=== PATIENT | male | born 1975 | race American Indian/Alaskan Native ===

== ENCOUNTER 2020-07-12 09:42 | Emergency (ER) | payer OTHER ==
[2020-07-12] MEDS ORDERED: LORazepam 2 MG/ML VIAL ONE (10:08)
[2020-07-12 10:20] LABS: Absolute Lymphocytes (CBC) 2.2 K/uL (0.7-4.9); Basophils % 0.8 % (0-1.3); Hematocrit 40.3 % (39.6-49.0); Lymphocytes % 31.7 % (15.3-44.8); MPV 9.4 fL (7.6-11.3); RBC Red Blood Cell Count 4.72 M/uL (4.33-5.43)
[2020-07-12 10:27] LABS: Protime INR 0.92
[2020-07-12 10:40] LABS: ALT/SGPT 22 U/L (12-78); AST/SGOT 22 U/L (15-37); Albumin 3.8 g/dL (3.4-5.0); Alkaline Phosphatase 89 U/L (45-117); BUN Blood Urea Nitrogen 19 mg/dL (7-18); Bicarbonate 30 mmol/L (21-32); Bilirubin Direct < 0.1 mg/dL (0-0.2); Bilirubin Total 0.3 mg/dL (0.2-1.0); Glucose Level 147 mg/dL (74-106); Magnesium 2.1 mg/dL (1.8-2.4); NT PRO-BNP 40 pg/mL (<125); Potassium 4.3 mmol/L (3.5-5.1); Protein, Total 7.7 g/dL (6.4-8.2); Sodium Level 143 mmol/L (136-145); Troponin (Emerg Dept Use Only) < 0.02 ng/mL (0.0-0.045)
--- NOTE | 2020-07-12 10:52 | RAD REPORT ---
EXAM DESCRIPTION: RAD - Chest Single View - 07/12/2020 10:33 am CLINICAL HISTORY: CHEST PAIN COMPARISON: None TECHNIQUE: AP portable chest image was obtained 07/12/2020 10:33 am . FINDINGS: Lungs are clear. Heart and vasculature are normal. No measurable pleural effusion and no p neumothorax. No acute bony abnormality seen. No acute aortic findings suspected. IMPRESSION: No acute cardiopulmonary process.
--- NOTE | 2020-07-12 13:53 | ER ---
Nurse's Notes [facility] Name: Danial Quiroz Age: 45 yrs Sex: Male : 1975 Arrival Date: 07/12/2020 Time: 09:43 Bed 17 Private MD: Diagnosis: Chest pain, unspecified Presentation: 07/12 09:43 Chief complaint: Patient states: midsternal chest pain while sitting at his computer sv desk about 45 mins ago. ASA 324 mg PO given by EMS. Vitals WNL. Coronavirus screen: Client denies travel out of the [place] in the last 14 days. At this time, the client does not indicate any symptoms associated with coronavirus-19. Ebola Screen: No symptoms or risks identified at this time. Risk Assessment: Do you want to hurt yourself or someone else? Patient reports no desire to harm self or others. Onset of symptoms was July 12, 2020. 09:43 Method Of Arrival: EMS: [employer] [facility] 09:43 Acuity: DOMONIQUE 3 sv 10:41 Initial Sepsis Screen: Does the patient meet any 2 criteria? No. Patient's initial sv sepsis screen is negative. Does the patient have a suspected source of infection? No. Patient's initial sepsis screen is negative. Triage Assessment: 09:46 General: Appears in no apparent distress. comfortable, well groomed, well developed, sv Behavior is cooperative, appropriate for age, anxious. Pain: Complains of pain in chest. Neuro: Level of Consciousness is awake, alert, obeys commands, Oriented to person, place, time, situation, Moves all extremities. Full function Gait is steady. Cardiovascular: Patient's skin is warm and dry. Respiratory: Airway is patent Respiratory effort is even, unlabored, Respiratory pattern is regular, symmetrical. Derm: Skin is intact, Skin is pink, warm \\T\\ dry. Historical: - Allergies: 10:41 No Known Allergies; sv - PMHx: 09:45 Anxiety; High Cholesterol; sv - Immunization history:: Adult Immunizations up to date. - Social history:: Smoking status: Patient denies any tobacco usage or history of. Screenin:46 Abuse screen: Denies threats or abuse. Denies injuries from another. Nutritional sv screening: No deficits noted. Tuberculosis screening: No symptoms or risk factors identified. Fall Risk None identified. Assessment: 10:44 Reassessment: Patient appears in no apparent distress at this time. No changes from sv previously documented assessment. Patient and/or family updated on plan of care and expected duration. Pain level reassessed. Patient is alert, oriented x 3, equal unlabored respirations, skin warm/dry/pink. 11:24 Reassessment: Patient appears in no apparent distress at this time. Patient and/or sv family updated on plan of care and expected duration. Pain level reassessed. Patient is alert, oriented x 3, equal unlabored respirations, skin warm/dry/pink. Pt reports "my head is pounding." Asked pt if he would like me to ask for any medication for him, he stated "No I'll just deal with it.". 12:43 General: Appears in no apparent distress. comfortable, Behavior is calm, cooperative, zb appropriate for age. Pain: Complains of pain in chest Pain does not radiate. Quality of pain is described as aching, soreness. Neuro: Level of Consciousness is awake, alert, obeys commands, Oriented to person, place, time, situation. Cardiovascular: Heart tones S1 S2 present Capillary refill < 3 seconds in bilateral fingers Patient's skin is warm and dry. Respiratory: Airway is patent Respiratory effort is even, unlabored, Respiratory pattern is regular, symmetrical, Breath sounds are clear bilaterally. GI: Abdomen is round non-distended, Bowel sounds present X 4 quads. Abd is soft and non tender Patient currently denies nausea, vomiting. : No signs and/or symptoms were reported regarding the genitourinary system. EENT: No signs and/or symptoms were reported regarding the EENT system. Derm: Skin is intact, Skin is dry, Skin is normal, Skin temperature is warm. Musculoskeletal: Circulation, motion, and sensation intact. Capillary refill < 3 seconds, in bilateral fingers. Range of motion: intact in all extremities. 13:43 Reassessment: Patient appears in no apparent distress at this time. Patient and/or zb family updated on plan of care and expected duration. Pain level reassessed. Patient is alert, oriented x 3, equal unlabored respirations, skin warm/dry/pink. EKG preformed. discussed care with patient. 14:24 Reassessment: Patient appears in no apparent distress at this time. Patient and/or zb family updated on plan of care and expected duration. Pain level reassessed. Patient is alert, oriented x 3, equal unlabored respirations, skin warm/dry/pink. d/c instructions given. gait steady patient ready to go. Vital Signs: 09:48 BP 132 / 77; Pulse 78 MON; Resp 16; Temp 98; Pulse Ox 98% on R/A; sv 10:37 BP 130 / 73; Pulse 68; Resp 18; Temp 98.2; Pulse Ox 100% on R/A; mh5 11:17 BP 130 / 82; Pulse 73 MON; Resp 16; Pulse Ox 100% on R/A; sv 12:14 BP 110 / 69; Pulse 67; Resp 17; Temp 98.4(O); Pulse Ox 100% ; mh5 13:21 BP 125 / 75; Pulse 60; Resp 17; Pulse Ox 100% on R/A; mh5 14:26 BP 122 / 70; Pulse 57; Resp 16; Pulse Ox 100% on R/A; zb 09:48 Sinus Rhythm sv 11:17 Sinus Rhythm sv ED Course: 09:43 Patient arrived in ED. sv 09:43 Beverly Brown RN is Primary Nurse. sv 09:45 Triage completed. sv 09:45 Deanna Espino FNP-C is PHCP. kb 09:45 Sanchez Dwyer MD is Attending Physician. kb 09:45 Arm band placed on. sv 09:45 Maintain EMS IV. Dressing intact. Site clean \\T\\ dry. Gauge \\T\\ site: 18G L AC. sv 09:45 Patient maintains SpO2 saturation greater than 95% on room air. sv 09:46 Patient has correct armband on for positive identification. Placed in gown. Bed in low sv position. Call light in reach. Side rails up X2. court monitor on. Pulse ox on. NIBP on. Door closed. Head of bed elevated. 10:33 XRAY Chest (1 view) In Process Unspecified. EDMS 10:44 Awaiting radiology results. sv 11:52 Nurse Practitioner and/or Physician Ring Maker to see patient. sv 12:00 Report given to Urszula ARIAS. sv 14:26 No provider procedures requiring assistance completed. IV discontinued, intact, zb bleeding controlled, No redness/swelling at site. Pressure dressing applied. Administered Medications: 09:55 Drug: Ativan 0.5 mg Route: IVP; Site: left antecubital; bp 10:26 Follow up: Response: No adverse reaction sv Outcome: 13:53 Discharge ordered by MD. webb 14:26 Discharged to home ambulatory. zb 14:26 Condition: stable 14:26 Discharge instructions given to patient, Instructed on discharge instructions, follow up and referral plans. Demonstrated understanding of instructions, follow-up care. 14:28 Patient left the ED. zb Signatures: Dispatcher [employer] EDMS Deanna Espino, ALEXANDRA-C ALEXANDRA-Beverly Cole, RN RN Keysha Hassan [facility] Lalo Chatterjee RN RN bp Brown, Zipporah, RN RN zb Corrections: (The following items were deleted from the chart) 10:41 09:48 Pulse 78bpm; Resp 16bpm; Pulse Ox 98% RA; sv sv 11:17 09:48 BP 132 / 77; Pulse 78bpm; Resp 16bpm; Pulse Ox 98% RA; Temp 98F; sv sv
--- NOTE | 2020-07-12 13:53 | EDPHYS ---
Physician Documentation [facility] Name: Danial Quiroz Age: 45 yrs Sex: Male : 1975 Arrival Date: 07/12/2020 Time: 09:43 Bed 17 Private MD: ED Physician Sanchez Dwyer HPI: 07/12 09:55 This 45 yrs old Other Male presents to ER via EMS with complaints of Chest Pain. kb 09:55 The patient or guardian reports chest pain that is located primarily in the substernal kb area. Onset: just prior to arrival. The pain does not radiate. Associated signs and symptoms: Pertinent positives: lightheadedness. The chest pain is described as "sinking feeling, like I was hit with a baseball". Duration: The patient or guardian reports a single episode, that is now resolved. Modifying factors: The symptoms are alleviated by nothing. the symptoms are aggravated by nothing. Severity of pain: At its worst the pain was moderate in the emergency department the pain has resolved and did so just prior to arrival. EMS care prior to arrival includes: aspirin, IV fluids, saline lock, supplemental oxygen. The patient has not experienced similar symptoms in the past. The patient has not recently seen a physician. Pt reports he was sitting at his desk at work and had a sudden sinking feeling in his chest, like he was hit with a baseball that made his chest cave in. States he went down to one knee and said "ouch." States he had some lightheadedness at that time. Now all symptoms have resolved, but he has anxiety. States he has a history of anxiety, GERD and hyperlipidemia. States he has had chest tightness before, but this is different. . Historical: - Allergies: 10:41 No Known Allergies; sv - PMHx: 09:45 Anxiety; High Cholesterol; sv - Immunization history:: Adult Immunizations up to date. - Social history:: Smoking status: Patient denies any tobacco usage or history of. ROS: 09:52 Constitutional: Negative for fever, chills, and weight loss, Respiratory: Negative for kb shortness of breath, cough, wheezing, and pleuritic chest pain, Abdomen/GI: Negative for abdominal pain, nausea, vomiting, diarrhea, and constipation, MS/Extremity: Negative for injury and deformity, Skin: Negative for injury, rash, and discoloration, Neuro: Negative for headache, weakness, numbness, tingling, and seizure. 09:52 Cardiovascular: Positive for chest pain, Negative for edema, orthopnea, palpitations, paroxysmal nocturnal dyspnea. 09:52 Psych: Positive for anxiety. Exam: 09:50 Constitutional: This is a well developed, well nourished patient who is awake, alert, kb and in no acute distress. Head/Face: Normocephalic, atraumatic. Chest/axilla: Normal chest wall appearance and motion. Nontender with no deformity. No lesions are appreciated. Cardiovascular: Regular rate and rhythm with a normal S1 and S2. No gallops, murmurs, or rubs. Normal PMI, no JVD. No pulse deficits. Respiratory: Lungs have equal breath sounds bilaterally, clear to auscultation and percussion. No rales, rhonchi or wheezes noted. No increased work of breathing, no retractions or nasal flaring. Abdomen/GI: Soft, non-tender, with normal bowel sounds. No distension or tympany. No guarding or rebound. No evidence of tenderness throughout. Skin: Warm, dry with normal turgor. Normal color with no rashes, no lesions, and no evidence of cellulitis. MS/ Extremity: Pulses equal, no cyanosis. Neurovascular intact. Full, normal range of motion. Neuro: Awake and alert, GCS 15, oriented to person, place, time, and situation. Cranial nerves II-XII grossly intact. Motor strength 5/5 in all extremities. Sensory grossly intact. Cerebellar exam normal. Normal gait. 09:50 ECG was reviewed by the Attending Physician. Vital Signs: 09:48 BP 132 / 77; Pulse 78 MON; Resp 16; Temp 98; Pulse Ox 98% on R/A; sv 10:37 BP 130 / 73; Pulse 68; Resp 18; Temp 98.2; Pulse Ox 100% on R/A; mh5 11:17 BP 130 / 82; Pulse 73 MON; Resp 16; Pulse Ox 100% on R/A; sv 12:14 BP 110 / 69; Pulse 67; Resp 17; Temp 98.4(O); Pulse Ox 100% ; mh5 13:21 BP 125 / 75; Pulse 60; Resp 17; Pulse Ox 100% on R/A; mh5 14:26 BP 122 / 70; Pulse 57; Resp 16; Pulse Ox 100% on R/A; zb 09:48 Sinus Rhythm sv 11:17 Sinus Rhythm sv MDM: 09:45 Patient medically screened. kb 09:51 Data reviewed: vital signs, nurses notes. Data interpreted: Pulse oximetry: on room air kb is 98 %. Interpretation: normal. 09:58 The patient was not given aspirin in the Emergency Department. Administered by EMS. kb 13:52 Counseling: I had a detailed discussion with the patient and/or guardian regarding: the kb historical points, exam findings, and any diagnostic results supporting the discharge/admit diagnosis, lab results, radiology results, the need for outpatient follow up, a family practitioner, to return to the emergency department if symptoms worsen or persist or if there are any questions or concerns that arise at home. 07/12 09:46 Order name: Basic Metabolic Panel; Complete Time: 10:43 kb 07/12 09:46 Order name: CBC with Diff; Complete Time: 10:29 kb 07/12 09:46 Order name: LFT's; Complete Time: 10:43 kb 07/12 09:46 Order name: Magnesium; Complete Time: 10:43 kb 07/12 09:46 Order name: NT PRO-BNP; Complete Time: 10:43 kb 07/12 09:46 Order name: PT-INR; Complete Time: 10:29 kb 07/12 09:46 Order name: Troponin (emerg Dept Use Only); Complete Time: 10:43 kb 07/12 09:46 Order name: XRAY Chest (1 view); Complete Time: 10:55 kb 07/12 09:46 Order name: EKG; Complete Time: 09:47 kb 07/12 09:46 Order name: Cardiac monitoring; Complete Time: 10:44 kb 07/12 09:46 Order name: EKG - Nurse/Tech; Complete Time: 09:47 kb 07/12 13:06 Order name: Troponin (emerg Dept Use Only); Complete Time: 13:52 kb 07/12 13:06 Order name: EKG; Complete Time: 13:07 kb 07/12 09:46 Order name: IV Saline Lock; Complete Time: 09:47 kb 07/12 09:46 Order name: Labs collected and sent; Complete Time: 10:26 kb 02/10 09:46 Order name: O2 Per Protocol; Complete Time: 09:47 kb 07/12 09:46 Order name: O2 Sat Monitoring; Complete Time: 09:47 kb 07/12 13:06 Order name: EKG - Nurse/Tech; Complete Time: 13:36 kb EC:50 Rate is 79 beats/min. Rhythm is regular. QRS [place] is Normal. TX interval is normal at kb 162 msec. QRS interval is normal at 112 msec. QT interval is normal at 392 msec. Administered Medications: 09:55 Drug: Ativan 0.5 mg Route: IVP; Site: left antecubital; bp 10:26 Follow up: Response: No adverse reaction sv Disposition: 17:32 Co-signature as Attending Physician, Sanchez Dwyer MD I agree with the assessment and kdr plan of care. Disposition: 07/12/20 13:53 Discharged to Home. Impression: Chest pain, unspecified. - Condition is Stable. - Discharge Instructions: Nonspecific Chest Pain, [id number]. - Medication Reconciliation Form, Thank You Letter, Antibiotic Education, Prescription Opioid Use, Work release form form. - Follow up: Emergency Department; When: As needed; Reason: Worsening of condition. Follow up: Private Physician; When: 2 - 3 days; Reason: Recheck today's complaints, Continuance of care, Re-evaluation by your physician. Signatures: Dispatcher [employer] EDNC Deanna Espino, ALEXANDRA-C LICENSE DISTRIBUTOR-Beverly Cole, Sanchez Taylor RN, MD MD kdr Peltier, Brian, RN RN bp Brown, Zipporah, RN RN zb Corrections: (The following items were deleted from the chart) 14:28 13:53 07/12/2020 13:53 Discharged to Home. Impression: Chest pain, unspecified. zb Condition is Stable. Forms are Medication Reconciliation Form, Thank You Letter, Antibiotic Education, Prescription Opioid Use. Follow up: Emergency Department; When: As needed; Reason: Worsening of condition. Follow up: Private Physician; When: 2 - 3 days; Reason: Recheck today's complaints, Continuance of care, Re-evaluation by your physician. kb
[2020-07-12 14:34] VITALS: O2SAT 100
[2020-07-12 14:36] VITALS: TEMP 98.4
[2020-07-12 14:38] VITALS: BP 122/70
--- OUTSIDE RECORDS SUMMARY | 2020-07-12 14:55 | XMS REPORT | Clinical Summary ---
:1975 Author Organization [facility] Address [address] [place] [address] Care Team Providers Name Role Phone Unavailable Primary Care Provider Unavailable Allergies No Known Active Allergies Medications No known medications Active Problems Not on file Medical History Medical History Date Comments Disease of thyroid gland Hyperlipidemia GERD (gastroesophageal reflux disease) Bronchitis Social History Tobacco Use Types Packs/Day Years Used Date Never Smoker Smokeless Tobacco: Never Used Sex Assigned at Date Recorded Not on file Last Filed Vital Signs Not on file Plan of Treatment Health Maintenance Due Date Last Done Comments COVID-19 VACCINE (1 of 2) 1991 HEPATITIS C SCREENING 1993 INFLUENZA VACCINE 01/01/2020 Results Not on fileafter 07/12/2019 Advance Directives For more information, please contact: [phone] Type Date Recorded Patient Dental Service Technician Explanati on Advance Directives, Living Will and Medical Power of Fowl Blood Tester
--- OUTSIDE RECORDS SUMMARY | 2020-07-12 14:55 | XMS REPORT | Continuity of Care Document ---
:1975 Author Organization [employer] Care Team Providers Name Role Phone [employer] Unavailable Un available Problems No Data Provided for This Section Medications Medication Details Route Status Patient Ordering Order Source Instructions Provider Date atorvastatin 20 20 mg = 1 Active [facility] mg oral tablet tab, PO, 019 Medical Daily, # 90 Group tab, 3 Refill(s), Pharmacy: [facility] [id number] atorvastatin 20 20 mg = 1 Inactive MH mg oral tablet tab, PO, 019 Medical Daily, 0 Group Refill(s) atorvastatin 10 10 mg = 1 Inactive MH mg oral tablet tab, PO, 019 Medical Daily, 0 Group Refill(s) levothyroxine 50 50 microgram Active MH mcg (0.05 mg) = 1 tab, PO, 019 Medic al oral tablet Daily, 0 Group Refill(s) Prevacid 30 mg, PO, Active MH Daily, # 15 019 Medical cap, 0 Group Refill(s) Clonazepam 0.5 0.5 mg = 1 Active MH MG Oral Tablet tab, PO, 018 Medical [Klonopin] TID, as Group needed, # 15 tab, 0 Refill(s) Allergies, Adverse Reactions, Alerts No Known Medication Allergies Immunizations No Data Provided for This Section Results No Data Provided for This Section Pathology Reports No Data Provided for This Section Diagnostic Reports No Data Provided for This Section Consultation Notes No Data Provided for This Section Discharge Summaries No Data Provided for This Section History and Physicals No Data Provided for This Section Vital Signs Vital Sign Value Date Comments Source Systolic (mm Hg) 123 07/10/2018 [facility] Diastolic (mm Hg) 67 07/10/2018 [facility] Heart Rate 78 07/10/2018 [facility] Height 167.64 cm 07/10/2018 [facility] Weight 70.909 07/10/2018 [facility] BMI Calculated 25.23 07/10/2018 [facility] Encounters Location Location Encounter Encounter Reason Attending ADM DC Stat us Source Details Type Number For Provider Date Date Visit Outpatient [id number] KELSEA 05/28 [facility] [employer] Urgent Outpatient [id number] Kelsea 05/29 05/29 Care Aaron /2017 [facility] Outpatient [id number] EARL 07/10 [facility] [id number] Earl 07/10 07/11 Cardiology [place] /2018 [facility] Outside [id number] 07/31 08/02 Cardiology Medical /2018 [facility] Procedures No Data Provided for This Section Assessment and Plan No Data Provided for This Section Plan of Care No Data Provided for This Section Social History Social History Date Source Social History TypeResponse 07/10/2018 [facility] Smoking Status Never smoker; Exposure to Tobacco Smoke Unable to obtain; Cigarette Smoking Last 365 Days Unable to obtain; Reg Smoking Cessation Counseling No entered on: 07/10/18 Family History No Data Provided for This Section Advance Directives No Data Provided for This Section Functional Status No Data Provided for This Section
== END 2020-07-12 14:28 | disposition home or self-care (01) ==
LOC: ER 09:42
DX: R07.9 Chest pain, unspecified (principal); F41.9 Anxiety disorder, unspecified; E78.00 Pure hypercholesterolemia, unspecified; K21.9 Gastro-esophageal reflux disease without esophagitis; E78.5 Hyperlipidemia, unspecified
CPT/HCPCS: 36415; 71045; 80048; 80076; 83735; 83880; 84484; 85025; 85610; 93005; 96374; 99285